=== PATIENT | male | born 1945 | race Caucasian/White ===

== ENCOUNTER → 2019-04-18 08:46 | Outpatient (CLI) | payer OTHER, SELFPAY ==
--- NOTE | 2019-04-18 | DI.US.S_ITS ---
PROCEDURE: US RENAL COMPLETE INDICATIONS: ESSENTIAL HYPERTENSION TECHNIQUE: Real-time scanning was performed of the kidneys and bladder, with image documentation. COMPARISON: None. FINDINGS: Kidneys: Kidneys are normal in size. Right kidney measures 11.8 cm long; left kidney measures 11.2 cm long. Right renal cortical thickness is 1.0 cm; left renal cortical thickness is 1.3 cm. Renal cortical echotexture is normal. No hydronephrosis or nephrolithiasis. No suspicious solid mass lesions. Bladder: Pre-void bladder volume is 47 mL. Post-void residual is 13 mL. Pre-void images demonstrate no intraluminal masses or stones. On pre-void images, bilateral ureteral jets are noted with color Doppler interrogation. (Of note, ureteral jets may not be detectable in up to 25% of cases due to insufficient differences in specific gravity between ureteral and bladder urine). Miscellaneous: No free pelvic fluid. IMPRESSION: Normal appearance of the kidneys. Dictated by: Baltazar PAUL Interpreted: Kimberly Moura MD on 04/18/2019 at 9:56 Approved by: Kimberly Moura M.D. on 04/18/2019 at 15:47
== END ==
PROVIDERS: PCP Family Medicine; Visit Provider Family Medicine
DX: I10 Essential (primary) hypertension (principal)
CPT/HCPCS: 76770